=== PATIENT | male | born 1930 | race Caucasian/White ===

== ENCOUNTER → 2017-01-11 | Outpatient (CLI) | payer MEDICARE, BC | END | disposition home or self-care (01) | LOC: MW.CHIM 11:53 | PROVIDERS: ATTEND Internal Medicine | DX: C34.92 Malignant neoplasm of unspecified part of left bronchus or lung (principal); C34.91 Malignant neoplasm of unspecified part of right bronchus or lung; I10 Essential (primary) hypertension; E78.00 Pure hypercholesterolemia, unspecified; E87.6 Hypokalemia; J44.9 Chronic obstructive pulmonary disease, unspecified; F41.9 Anxiety disorder, unspecified; F32.9 Major depressive disorder, single episode, unspecified | CPT/HCPCS: 36415; 80053; 83540; 85025; 99214 ==

== ENCOUNTER → 2017-02-23 | Outpatient (CLI) | payer MEDICARE, BC | LOC: MW.CHPOD 08:00 | PROVIDERS: ATTEND Podiatrist Foot & Ankle Surgery | DX: M79.675 Pain in left toe(s) (principal); B35.1 Tinea unguium; I73.9 Peripheral vascular disease, unspecified; L89.890 Pressure ulcer of other site, unstageable; M20.5X2 Other deformities of toe(s) (acquired), left foot | CPT/HCPCS: G0463 ==

== ENCOUNTER → 2017-03-03 | Outpatient (CLI) | payer MEDICARE, BC | LOC: MW.CHIM 09:12 | PROVIDERS: ATTEND Internal Medicine | DX: E87.6 Hypokalemia (principal); D64.9 Anemia, unspecified; C34.92 Malignant neoplasm of unspecified part of left bronchus or lung; E83.19 Other disorders of iron metabolism; C79.51 Secondary malignant neoplasm of bone | CPT/HCPCS: 36415; 80053; 83540; 85025; G0463 ==

== ENCOUNTER 2019-06-19 15:36 | Observation (INO) | payer MEDICARE, BC ==
--- NOTE | 2019-06-19 15:49 | EDM.PDOC ---
ED HPI GENERAL MEDICAL PROBLEM - General Chief Complaint: Respiratory Problem Stated Complaint: SHORTNESS OF BREATH AND ANXIETY Time Seen by Provider: 06/19/19 15:40 Source of Information: Reports: Patient History Limitations: Reports: No Limitations - History of Present Illness INITIAL COMMENTS - FREE TEXT/NARRATIVE: HISTORY AND PHYSICAL: History of present illness: Patient is an 88-year-old male who presents to the emergency room with complaints of shortness of breath over the past 2 days. He does routinely uses 2 L per nasal cannula at home but had noticed that his oxygen saturation was 78%. stated she attempted to get the patient into his primary care provider but they requested that he come into the emergency room. At some point there was a comment that the patient reported chest pain to the clinic, while here in the emergency room he denies having any chest pain or pressure. Patient denies any fever, chills, headache, change in vision, syncope or near syncope. Denies any chest pain, back pain or neck pain/stiffness. Denies any abdominal pain, nausea, vomiting, diarrhea, constipation or dysuria. Has not noted any blood in urine or stool. Patient has been eating and drinking appropriately. Patient does have a history of COPD, lung cancer, atrial fibrillation. Currently receiving chemotherapy. Review of systems: As per history of present illness and below otherwise all systems reviewed and negative. Past medical history: As per history of present illness and as reviewed below otherwise noncontributory. Surgical history: As per history of present illness and as reviewed below otherwise noncontributory. Social history: See social history for further information Family history: As per history of present illness and as reviewed below otherwise noncontributory. Physical exam: General: Chronically ill appearing 88-year-old male. Alert and oriented. HEENT: Atraumatic, normocephalic, pupils equal and reactive bilaterally, negative for conjunctival pallor or scleral icterus, mucous membranes moist, trachea midline. No drooling or trismus noted. No meningeal signs. No hot potato voice noted. Lungs: Diminished lung sounds, barrel chest noted, does have some workup breathing, no retractions noted, chest nontender. Heart: S1S2, irregular rate and rhythm without overt murmur Abdomen: Soft, nondistended, sunken, nontender. Negative for masses. Negative for costovertebral tenderness. Skin: Intact, warm, dry. No lesions or rashes noted. Extremities: Atraumatic, moves all extremities per self without difficulty or deficits. Neurovascular unremarkable. Neuro: Awake, alert, oriented. Cranial nerves II through XII unremarkable. Cerebellum unremarkable. Motor and sensory unremarkable throughout. Exam nonfocal. Notes: Patient does have leukocytosis and appears that there is a right lower lobe infiltrate will treat as such. The radiologist is reading the x-ray is a nodular opacity in the left highly or region. Mild bibasilar atelectasis and trace bilateral pleural effusions noted. Patient's troponin is elevated at 0.062. I did have a lengthy discussion with the and patient about transfer to [facility] for cardiology services. Patient declines he states he does not want to be transferred and is even hesitant about staying at our facility for continued care and monitoring. Patient and are aware of the risks of not having further cardiology care. Patient's agrees that she does not want the patient to be transferred, does talk with patient and is willing to stay at our facility for further care and management. Patient continues to deny having any chest pain. Heide was consult on this case and agreeable to keeping this patient for further care. Diagnostics: CBC, CMP, Troponin, EKG, ABG, CXR, blood cultures 2, cardiac tech oxygen Therapeutics: Saline lock, Rocephin, aspirin Impression: Elevated Troponin Hypoxemia Pneumonia Plan: Observation admission with cardiac monitoring Definitive disposition and diagnosis as appropriate pending reevaluation and review of above. epigastric Pain Score (Numeric/FACES): 10 - Related Data Allergies Allergy/AdvReac Type Severity Reaction Status Date / Time ciprofloxacin Allergy Itching Verified 06/19/19 15:46 Penicillins Allergy Cannot Verified 06/19/19 15:46 Remember Home Meds: Home Meds Lisinopril 20 mg PO DAILY 06/17/14 [History] Lovastatin 10 mg PO BEDTIME 06/17/14 [History] Diazepam [Valium] 5 mg PO Q24H PRN 06/18/14 [History] Imipramine HCl 25 mg PO DAILY 06/18/14 [History] Levalbuterol HCl [Xopenex] 1.25 mg NEB Q3H PRN #100 neb 06/26/14 [Rx] Mirtazapine [Remeron] 15 mg PO BEDTIME #30 tab.dis 06/26/14 [Rx] Pantoprazole [ProTONIX Granules] 40 mg PO DAILY #30 packet 06/26/14 [Rx] Furosemide [Lasix] 20 mg PO Q48H 09/20/18 [History] Levothyroxine [Synthroid] 50 mcg PO ACBREAKFAST 09/20/18 [History] Potassium Chloride [Klor-Con 10] 10 meq PO Q48H 09/20/18 [History] Tamsulosin [Flomax] 0.4 mg PO BEDTIME 09/20/18 [History] Colchicine 0.6 mg PO Q48H #5 capsule 09/22/18 [Rx] Levofloxacin [Levaquin] 750 mg PO Q48H #3 tablet 09/22/18 [Rx] Past Medical History Cardiovascular History: Reports: High Cholesterol, Hypertension Respiratory History: Reports: COPD, Other (See Below) Other Respiratory History: Lung Cancer Gastrointestinal History: Reports: GERD, Irritable Bowel Syndrome Neurological History: Reports: CVA Psychiatric History: Reports: Anxiety, Depression, Panic Attack Oncologic (Cancer) History: Reports: Lung - Infectious Disease History Infectious Disease History: Reports: Chicken Pox, Measles, Mumps, Pertussis ( Whooping Cough) Social & Family History - Caffeine Use Caffeine Use: Reports: None - Living Situation & Occupation Living situation: Reports: Occupation: Retired ED ROS GENERAL - Review of Systems Review Of Systems: ROS reveals no pertinent complaints other than HPI. ED EXAM, GENERAL - Physical Exam Exam: See Below (See dictation) Course - Vital Signs Last Recorded V/S: Last Vital Signs Temp 96.7 F 06/19/19 15:44 Pulse 108 H 06/19/19 16:41 Resp 22 H 06/19/19 15:44 BP 111/62 06/19/19 16:41 Pulse Ox 75 L 06/19/19 16:41 - Orders/Labs/Meds Orders: Active Orders 24 hr Category Date Time Status Patient Status [ADT] Stat ADT 06/19/19 16:23 Active Cardiac Monitoring [RC] . DIRECTED Care 06/19/19 16:23 Active EKG Documentation Completion [RC] STAT Care 06/19/19 15:40 Active CULTURE BLOOD [BC] Stat Lab 06/19/19 16:25 Ordered CULTURE BLOOD [BC] Stat Lab 06/19/19 16:38 Results Blood Culture x2 Reflex Set [OM.PC] Stat Oth 06/19/19 16:22 Ordered Labs: Laboratory Tests 06/19/19 06/19/19 06/19/19 Range/Units 15:41 15:41 15:41 WBC 18.46 H (4.0-11.0) K/uL RBC 4.16 L (4.50-5.90) M/uL Hgb 12.3 L (13.0-17.0) g/dL Hct 40.3 (38.0-50.0) % MCV 96.9 (80.0-98.0) fL MCH 29.6 (27.0-32.0) pg MCHC 30.5 L (31.0-37.0) g/dL RDW Std Deviation 62.5 H (28.0-62.0) fl RDW Coeff of Joe 18 H (11.0-15.0) % Plt Count 127 L (150-400) K/uL MPV 11.40 (7.40-12.00) fL Add Manual Diff YES Neutrophils % (Manual) 75 (48.0-80.0) % Band Neutrophils % 3 % Lymphocytes % (Manual) 19 (16.0-40.0) % Monocytes % (Manual) 3 (0.0-15.0) % Nucleated RBC % 0.0 /100WBC Absolute Seg Neuts 13.8 H (1.4-5.7) Band Neutrophils # 0.6 Lymphocytes # (Manual) 3.5 H (0.6-2.4) Monocytes # (Manual) 0.6 (0.0-0.8) Nucleated RBCs # 0 K/uL ABG pH (7.35-7.45) ABG pCO2 (35-45) mmHG ABG pO2 (75-100) mmHG ABG HCO3 (22-26) mEq/L ABG Total CO2 ABG Base Excess (-2.0-2.0) Sodium 141 (136-148) mmol/L Potassium 4.7 (3.5-5.1) mmol/L Chloride 105 (98-107) mmol/L Carbon Dioxide 26.3 (21.0-32.0) mmol/L BUN 33 H (7.0-18.0) mg/dL Creatinine 1.5 H (0.8-1.3) mg/dL Est Cr Clr Drug Dosing 24.26 mL/min Estimated GFR (MDRD) 44.3 ml/min Glucose 111 H (74-106) mg/dL Calcium 9.4 (8.5-10.1) mg/dL Total Bilirubin 0.6 (0.2-1.0) mg/dL AST 26 (15-37) IU/L ALT 12 L (14-63) IU/L Alkaline Phosphatase 113 (46-116) U/L Troponin I 0.062 H* (0.000-0.056) ng/mL B-Natriuretic Peptide 230 H (<100) PG/ML Total Protein 7.4 (6.4-8.2) g/dL Albumin 3.3 L (3.4-5.0) g/dL Globulin 4.1 H (2.6-4.0) g/dL Albumin/Globulin Ratio 0.8 L (0.9-1.6) 06/19/19 Range/Units 16:00 WBC (4.0-11.0) K/uL RBC (4.50-5.90) M/uL Hgb (13.0-17.0) g/dL Hct (38.0-50.0) % MCV (80.0-98.0) fL MCH (27.0-32.0) pg MCHC (31.0-37.0) g/dL RDW Std Deviation (28.0-62.0) fl RDW Coeff of Joe (11.0-15.0) % Plt Count (150-400) K/uL MPV (7.40-12.00) fL Add Manual Diff Neutrophils % (Manual) (48.0-80.0) % Band Neutrophils % % Lymphocytes % (Manual) (16.0-40.0) % Monocytes % (Manual) (0.0-15.0) % Nucleated RBC % /100WBC Absolute Seg Neuts (1.4-5.7) Band Neutrophils # Lymphocytes # (Manual) (0.6-2.4) Monocytes # (Manual) (0.0-0.8) Nucleated RBCs # K/uL ABG pH 7.500 H (7.35-7.45) ABG pCO2 33 L (35-45) mmHG ABG pO2 64 L (75-100) mmHG ABG HCO3 26 (22-26) mEq/L ABG Total CO2 23.1 ABG Base Excess 2.7 H (-2.0-2.0) Sodium (136-148) mmol/L Potassium (3.5-5.1) mmol/L Chloride (98-107) mmol/L Carbon Dioxide (21.0-32.0) mmol/L BUN (7.0-18.0) mg/dL Creatinine (0.8-1.3) mg/dL Est Cr Clr Drug Dosing mL/min Estimated GFR (MDRD) ml/min Glucose (74-106) mg/dL Calcium (8.5-10.1) mg/dL Total Bilirubin (0.2-1.0) mg/dL AST (15-37) IU/L ALT (14-63) IU/L Alkaline Phosphatase (46-116) U/L Troponin I (0.000-0.056) ng/mL B-Natriuretic Peptide (<100) PG/ML Total Protein (6.4-8.2) g/dL Albumin (3.4-5.0) g/dL Globulin (2.6-4.0) g/dL Albumin/Globulin Ratio (0.9-1.6) Meds: Medications Discontinued Medications Generic Name Dose Route Start Last Admin Trade Name Freq PRN Reason Stop Dose Admin Aspirin 324 mg 06/19/19 16:15 06/19/19 16:26 Aspirin PO 06/19/19 16:16 324 mg ONETIME ONE Administration Ceftriaxone Sodium/Dextrose 1 50 mls @ 100 mls/hr 06/19/19 16:23 06/19/19 16: 37 gm/ Premix IV 06/19/19 16:52 100 mls/hr ONETIME ONE Administration Departure - Departure Time of Disposition: 16:58 Disposition: Refer to Observation Clinical Impression: Elevated troponin, History of lung cancer, Hypoxemia Pneumonia Qualifiers: Pneumonia type: due to unspecified organism Laterality: right Lung location: lower lobe of lung Qualified Code(s): J18.1 - Lobar pneumonia, unspecified organism - Discharge Information Referrals: PCP,None [Primary Care Provider] - Forms: ED Department Discharge - My Orders Last 24 Hours: My Active Orders 06/19/19 15:40 EKG Documentation Completion [RC] STAT 06/19/19 16:22 Blood Culture x2 Reflex Set [OM.PC] Stat 06/19/19 16:23 Patient Status [ADT] Stat Cardiac Monitoring [RC] . DIRECTED 06/19/19 16:25 CULTURE BLOOD [BC] Stat 06/19/19 16:38 CULTURE BLOOD [BC] Stat - Assessment/Plan Last 24 Hours: My Active Orders 06/19/19 15:40 EKG Documentation Completion [RC] STAT 06/19/19 16:22 Blood Culture x2 Reflex Set [OM.PC] Stat 06/19/19 16:23 Patient Status [ADT] Stat Cardiac Monitoring [RC] . DIRECTED 06/19/19 16:25 CULTURE BLOOD [BC] Stat 06/19/19 16:38 CULTURE BLOOD [BC] Stat
[2019-06-19] MEDS ORDERED: Aspirin 81 MG Tab.Chew PO ONE (16:15)
--- NOTE | 2019-06-19 16:17 | CR ---
INDICATION: Dyspnea TECHNIQUE: Chest radiograph 1 view COMPARISON: 03/28/2019 FINDINGS: Mediastinum: There is a nodular opacity in the left hilar region and measures 2 cm in diameter and is more organized in appearance to prior exam. The heart silhouette is normal in size and morphology. Lung: Mild bibasilar atelectasis and trace bilateral pleural effusions are noted. No pneumothorax is identified. IMPRESSIONS: 1. There is a nodular opacity in the left hilar region and measures 2 cm in diameter and is more organized in appearance to prior exam. Assessment with chest CT recommended. 2. Mild bibasilar atelectasis and trace bilateral pleural effusions are noted. Dictated by Rayo Gudino MD @ 06/19/2019 4:15:35 PM Dictated by: Rayo Gudino MD @ 06/19/2019 16:15:40 (Electronically Signed)
[2019-06-19] MEDS ORDERED: cefTRIAXone 1 GM in Premix Bag 1 BAG IV ONE (16:23)
[2019-06-19] MEDS ORDERED: oxyCODONE 5 MG Tab PO PRN (18:03)
[2019-06-19] MEDS ORDERED: Temazepam 15 MG Cap PO PRN (18:03)
[2019-06-19] MEDS ORDERED: Acetaminophen 325 MG Tab PO PRN (18:03)
[2019-06-19] MEDS ORDERED: Albuterol 0.083% 2.5 MG/3 ML Neb Soln NEB PRN (18:03)
[2019-06-19] MEDS ORDERED: Ondansetron 4 MG Tab.DIS PO PRN (18:03)
[2019-06-19] MEDS: Sodium Chloride 0.9% 1,000 ML IV SCH (19:00)
--- NOTE | 2019-06-19 19:10 | PCM.HP ---
H&P History of Present Illness - General Date of Service: 06/19/19 Admit Problem/Dx: Admission Diagnosis/Problem Admission Diagnosis/Problem Pneumonia Source of Information: Patient History Limitations: Reports: No Limitations - History of Present Illness Initial Comments - Free Text/Narative: The patient is an 88-year-old gentleman who had presented to the emergency department primarily out of concern for shortness of breath and anxiety. The patient has a significant history of recurrent widely metastatic lung cancer and chest x-ray had shown new nodular disease. The patient uses 2 L of oxygen at home and he had been saturating around 78%. The patient came into the emergency department and was noted to have an elevated troponin as well of 0.062 and both the patient and the patient's had refused transfer. The patient also had been complaining initially of chest pain although he denies this at this time. The patient also has denied any fever, chills or syncope. The patient is currently receiving chemotherapy. The patient was last hospitalized in August 2018 for similar episode. Patient says that he has been in declining health. Onset of Symptoms: Reports: Gradual Duration of Symptoms: Reports: Day(s): Quality: Reports: Throbbing Improves with: Reports: None Worsens with: Reports: None Context: Reports: Other (Widely metastatic lung cancer) Associated Symptoms: Reports: No Other Symptoms epigastric Pain Score (Numeric/FACES): 10 - Related Data Allergies/Adverse Reactions: Allergies Allergy/AdvReac Type Severity Reaction Status Date / Time ciprofloxacin Allergy Itching Verified 06/19/19 18:05 Penicillins Allergy Cannot Verified 06/19/19 18:05 Remember Home Medications: Home Meds Lisinopril 20 mg PO DAILY 06/17/14 [History] Diazepam [Valium] 5 mg PO Q12HR 06/18/14 [History] Imipramine HCl 25 mg PO DAILY 06/18/14 [History] Levalbuterol HCl [Xopenex] 1.25 mg NEB Q3H PRN #100 neb 06/26/14 [Rx] Mirtazapine [Remeron] 15 mg PO BEDTIME #30 tab.dis 06/26/14 [Rx] Pantoprazole [ProTONIX Granules] 40 mg PO DAILY #30 packet 06/26/14 [Rx] Furosemide [Lasix] 20 mg PO Q48H 09/20/18 [History] Levothyroxine [Synthroid] 50 mcg PO ACBREAKFAST 09/20/18 [History] Tamsulosin [Flomax] 0.4 mg PO BEDTIME 09/20/18 [History] Colchicine 0.6 mg PO Q48H PRN 06/19/19 [History] Past Medical History HEENT History: Reports: Cataract, Impaired Vision Cardiovascular History: Reports: Afib, High Cholesterol, Hypertension Respiratory History: Reports: COPD, Pneumonia, Recurrent, Other (See Below) Other Respiratory History: Lung Cancer Gastrointestinal History: Reports: GERD, Irritable Bowel Syndrome Genitourinary History: Reports: None Musculoskeletal History: Reports: Arthritis Neurological History: Reports: CVA Psychiatric History: Reports: Anxiety, Depression, Panic Attack Endocrine/Metabolic History: Reports: None Hematologic History: Reports: Anemia, Blood Transfusion(s), Iron Deficiency Immunologic History: Reports: None Oncologic (Cancer) History: Reports: Lung Dermatologic History: Reports: None - Infectious Disease History Infectious Disease History: Reports: Chicken Pox, Measles, Mumps, Pertussis ( Whooping Cough) - Past Surgical History HEENT Surgical History: Reports: None Male Surgical History: Reports: None Endocrine Surgical History: Reports: None Musculoskeletal Surgical History: Reports: Hip Replacement Dermatological Surgical History: Reports: None Social & Family History - Family History Family Medical History: Noncontributory - Tobacco Use Smoking Status *Q: Former Smoker Used Tobacco, but Quit: Yes Month/Year Tobacco Last Used: 11/2014 Second Hand Smoke Exposure: Yes - Caffeine Use Caffeine Use: Reports: Coffee - Recreational Drug Use Recreational Drug Use: No - Living Situation & Occupation Living situation: Reports: Occupation: Retired H&P Review of Systems - Review of Systems: Review Of Systems: See Below General: Reports: Weakness, Weight Loss HEENT: Reports: No Symptoms Pulmonary: Reports: Shortness of Breath, Wheezing, Cough Cardiovascular: Reports: No Symptoms Gastrointestinal: Reports: No Symptoms Genitourinary: Reports: No Symptoms Musculoskeletal: Reports: Hand Pain Skin: Reports: No Symptoms Psychiatric: Reports: No Symptoms Neurological: Reports: No Symptoms Hematologic/Lymphatic: Reports: No Symptoms Immunologic: Reports: No Symptoms Exam - Exam Exam: See Below - Vital Signs Vital Signs: Last Vital Signs Temp 37.2 C 06/19/19 17:17 Pulse 98 06/19/19 17:17 Resp 16 06/19/19 17:17 BP 129/54 L 06/19/19 17:17 Pulse Ox 94 L 06/19/19 18:44 Weight: 49.442 kg - Exam Quality Assessment: Supplemental Oxygen General: Alert (Cachectic), Oriented, Cooperative, Mild Distress HEENT: Conjunctiva Clear, EACs Clear (Dry), EOMI, Pupils Equal, PERRLA. No: Mucosa Moist & [place] Neck: Supple, Trachea Midline Lungs: Clear to Auscultation, Normal Respiratory Effort Cardiovascular: Regular Rate, Regular Rhythm GI/Abdominal Exam: Normal Bowel Sounds, Soft, No Distention Back Exam: Normal Inspection (Appropriate for age) Extremities: Normal Inspection, No Pedal Edema, Other (Thin, markedly decreased muscle mass) Skin: Warm, Dry, Intact Neurological: Cranial Nerves Intact Neuro Extensive - Mental Status: Alert, Oriented x3, Memory Intact Neuro Extensive - Motor, Sensory, Reflexes: CN II-XII Intact Psychiatric: Alert, Normal Affect, Normal Mood - Patient Data Lab Results Last 24 hrs: Laboratory Results - last 24 hr 06/19/19 06/19/19 06/19/19 Range/Units 15:41 15:41 15:41 WBC 18.46 H (4.0-11.0) K/uL RBC 4.16 L (4.50-5.90) M/uL Hgb 12.3 L (13.0-17.0) g/dL Hct 40.3 (38.0-50.0) % MCV 96.9 (80.0-98.0) fL MCH 29.6 (27.0-32.0) pg MCHC 30.5 L (31.0-37.0) g/dL RDW Std Deviation 62.5 H (28.0-62.0) fl RDW Coeff of Joe 18 H (11.0-15.0) % Plt Count 127 L (150-400) K/uL MPV 11.40 (7.40-12.00) fL Add Manual Diff YES Neutrophils % (Manual) 75 (48.0-80.0) % Band Neutrophils % 3 % Lymphocytes % (Manual) 19 (16.0-40.0) % Monocytes % (Manual) 3 (0.0-15.0) % Nucleated RBC % 0.0 /100WBC Absolute Seg Neuts 13.8 H (1.4-5.7) Band Neutrophils # 0.6 Lymphocytes # (Manual) 3.5 H (0.6-2.4) Monocytes # (Manual) 0.6 (0.0-0.8) Nucleated RBCs # 0 K/uL ABG pH (7.35-7.45) ABG pCO2 (35-45) mmHG ABG pO2 (75-100) mmHG ABG HCO3 (22-26) mEq/L ABG Total CO2 ABG Base Excess (-2.0-2.0) Sodium 141 (136-148) mmol/L Potassium 4.7 (3.5-5.1) mmol/L Chloride 105 (98-107) mmol/L Carbon Dioxide 26.3 (21.0-32.0) mmol/L BUN 33 H (7.0-18.0) mg/dL Creatinine 1.5 H (0.8-1.3) mg/dL Est Cr Clr Drug Dosing 24.26 mL/min Estimated GFR (MDRD) 44.3 ml/min Glucose 111 H (74-106) mg/dL Calcium 9.4 (8.5-10.1) mg/dL Total Bilirubin 0.6 (0.2-1.0) mg/dL AST 26 (15-37) IU/L ALT 12 L (14-63) IU/L Alkaline Phosphatase 113 (46-116) U/L Troponin I 0.062 H* (0.000-0.056) ng/mL B-Natriuretic Peptide 230 H (<100) PG/ML Total Protein 7.4 (6.4-8.2) g/dL Albumin 3.3 L (3.4-5.0) g/dL Globulin 4.1 H (2.6-4.0) g/dL Albumin/Globulin Ratio 0.8 L (0.9-1.6) 06/19/19 Range/Units 16:00 WBC (4.0-11.0) K/uL RBC (4.50-5.90) M/uL Hgb (13.0-17.0) g/dL Hct (38.0-50.0) % MCV (80.0-98.0) fL MCH (27.0-32.0) pg MCHC (31.0-37.0) g/dL RDW Std Deviation (28.0-62.0) fl RDW Coeff of Joe (11.0-15.0) % Plt Count (150-400) K/uL MPV (7.40-12.00) fL Add Manual Diff Neutrophils % (Manual) (48.0-80.0) % Band Neutrophils % % Lymphocytes % (Manual) (16.0-40.0) % Monocytes % (Manual) (0.0-15.0) % Nucleated RBC % /100WBC Absolute Seg Neuts (1.4-5.7) Band Neutrophils # Lymphocytes # (Manual) (0.6-2.4) Monocytes # (Manual) (0.0-0.8) Nucleated RBCs # K/uL ABG pH 7.500 H (7.35-7.45) ABG pCO2 33 L (35-45) mmHG ABG pO2 64 L (75-100) mmHG ABG HCO3 26 (22-26) mEq/L ABG Total CO2 23.1 ABG Base Excess 2.7 H (-2.0-2.0) Sodium (136-148) mmol/L Potassium (3.5-5.1) mmol/L Chloride (98-107) mmol/L Carbon Dioxide (21.0-32.0) mmol/L BUN (7.0-18.0) mg/dL Creatinine (0.8-1.3) mg/dL Est Cr Clr Drug Dosing mL/min Estimated GFR (MDRD) ml/min Glucose (74-106) mg/dL Calcium (8.5-10.1) mg/dL Total Bilirubin (0.2-1.0) mg/dL AST (15-37) IU/L ALT (14-63) IU/L Alkaline Phosphatase (46-116) U/L Troponin I (0.000-0.056) ng/mL B-Natriuretic Peptide (<100) PG/ML Total Protein (6.4-8.2) g/dL Albumin (3.4-5.0) g/dL Globulin (2.6-4.0) g/dL Albumin/Globulin Ratio (0.9-1.6) Result Diagrams: 06/20/19 03:08 06/20/19 03:08 Errol Results Last 24 hrs: Microbiology 06/19/19 16:38 Anaerobic Blood Culture - Final Blood - Venous - Problem List (1) Acute and chronic respiratory failure SNOMED Code(s): 61818755 ICD Code: J96.20 - ACUTE AND CHR RESP FAILURE, UNSP W HYPOXIA OR HYPERCAPNIA Status: Acute Priority: High Current Visit: Yes Qualifiers: Respiratory failure complication: hypoxia Qualified Code(s): J96.21 - Acute and chronic respiratory failure with hypoxia (2) Elevated troponin SNOMED Code(s): 205771171, 325596003, 826702158 ICD Code: R74.8 - ABNORMAL LEVELS OF OTHER SERUM ENZYMES Status: Acute Priority: High Current Visit: Yes (3) Hypoxemia SNOMED Code(s): 357201243 ICD Code: R09.02 - HYPOXEMIA Status: Chronic Priority: High Current Visit: Yes (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 SNOMED Code(s): 826631464 ICD Code: J44.9 - CHRONIC OBSTRUCTIVE PULMONARY DISEASE, UNSPECIFIED; R64 - CACHEXIA Status: Chronic Priority: High Current Visit: Yes (5) Metastatic primary lung cancer SNOMED Code(s): 70818202, 911383184 ICD Code: C34.90 - MALIGNANT NEOPLASM OF UNSP PART OF UNSP BRONCHUS OR LUNG Status: Acute Priority: High Current Visit: Yes Qualifiers: Laterality: right Qualified Code(s): C34.91 - Malignant neoplasm of unspecified part of right bronchus or lung Problem List Initiated/Reviewed/Updated: Yes Orders Last 24hrs: Active Orders 24 hr Category Date Time Status Patient Status [ADT] Stat ADT 06/19/19 16:23 Active Antiembolic Devices [RC] PER UNIT ROUTINE Care 06/19/19 18:04 Active Cardiac Monitoring [RC] . DIRECTED Care 06/19/19 16:23 Active Cardiac Monitoring [RC] CONTINUOUS Care 06/19/19 18:03 Active EKG Documentation Completion [RC] STAT Care 06/19/19 15:40 Active Oxygen Therapy [RC] PRN Care 06/19/19 18:03 Active RT Aerosol Therapy [RC] ASDIRECTED Care 06/19/19 18:06 Active VTE/DVT Education [RC] PER UNIT ROUTINE Care 06/19/19 18:03 Active Vital Signs [RC] Q4H Care 06/19/19 18:03 Active Heart Healthy Diet [DIET] Diet 06/19/19 Breakfast Active CBC WITH AUTO DIFF [HEME] AM Lab 06/20/19 05:11 Ordered COMPREHENSIVE METABOLIC PN,CMP [CHEM] AM Lab 06/20/19 05:11 Ordered CULTURE BLOOD [BC] Stat Lab 06/19/19 16:38 Results CULTURE BLOOD [BC] Stat Lab 06/19/19 16:52 Received TROPONIN I [CHEM] Routine Lab 06/19/19 21:00 Ordered TROPONIN I [CHEM] Timed Lab 06/20/19 03:00 Ordered Acetaminophen [Tylenol] Med 06/19/19 18:03 Active 650 mg PO Q4H PRN Albuterol [Proventil Neb Soln] Med 06/19/19 18:03 Active 2.5 mg NEB Q2H PRN Ondansetron [Zofran ODT] Med 06/19/19 18:03 Active 4 mg PO Q4H PRN Sodium Chloride 0.9% [Normal Saline] 1,000 ml Med 06/19/19 18:15 Active IV ASDIRECTED Temazepam [Restoril] Med 06/19/19 18:03 Active 15 mg PO BEDTIME PRN oxyCODONE Med 06/19/19 18:03 Active 5 mg PO Q4H PRN Blood Culture x2 Reflex Set [OM.PC] Stat Oth 06/19/19 16:22 Ordered Sequential Compression Device [OM.PC] Per Unit Routine Oth 06/19/19 18:04 Ordered Medication Orders Acetaminophen (Tylenol) 650 mg PO Q4H PRN PRN Reason: Pain (Mild 1-3)/fever Albuterol (Proventil Neb Soln) 2.5 mg NEB Q2H PRN PRN Reason: Shortness Of Breath/wheezing Sodium Chloride (Normal Saline) 1,000 mls @ 75 mls/hr IV ASDIRECTED YOAN Last Admin: 06/19/19 19:00 Dose: 75 mls/hr Ondansetron HCl (Zofran Odt) 4 mg PO Q4H PRN PRN Reason: nausea, able to take PO Oxycodone HCl (Oxycodone) 5 mg PO Q4H PRN PRN Reason: Pain (moderate 4-6) Temazepam (Restoril) 15 mg PO BEDTIME PRN PRN Reason: Sleep Assessment/Plan Comment:: The patient is an 88-year-old gentleman who had been admitted out of concern primarily for hypoxia and pneumonia. Chest x-ray obtained showed nodular densities consistent with his history of pulmonary cancer. Pneumonia was not apparent according to radiology over read. 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 The patient had been given antibiotics in the emergency department and these will be discontinued for now. We will be reinstituted as necessary. The patient will be kept on oxygen as needed to help keep his oxygen saturations between 90 and 92% . The patient is also to have a regular diet as tolerated. Repeat laboratory studies have been ordered. The patient may be considered next for possible hospice care. The patient will have DVT prophylaxis with the use of SCDs.
[2019-06-20] MEDS: Sodium Chloride 0.9% 1,000 ML IV SCH (06:34)
--- NOTE | 2019-06-20 09:31 | PCM.DCSUM1 ---
Discharge Summary - Hospital Course HPI Initial Comments: Admitted secondary to what was thought initially to be pneumonia but was considered to be lung cancer. Diagnosis: Stroke: No - Discharge Data Discharge Date: 06/20/19 Discharge Disposition: Home, Self-Care 01 Condition: Fair - Discharge Diagnosis/Problem(s) (1) Acute and chronic respiratory failure SNOMED Code(s): 87333911 ICD Code: J96.20 - ACUTE AND CHR RESP FAILURE, UNSP W HYPOXIA OR HYPERCAPNIA Status: Resolved Priority: High Current Visit: Yes Qualifiers: Respiratory failure complication: hypoxia Qualified Code(s): J96.21 - Acute and chronic respiratory failure with hypoxia (2) Elevated troponin SNOMED Code(s): 798194741, 520229068, 181850839 ICD Code: R74.8 - ABNORMAL LEVELS OF OTHER SERUM ENZYMES Status: Resolved Priority: High Current Visit: Yes (3) Hypoxemia SNOMED Code(s): 608089828 ICD Code: R09.02 - HYPOXEMIA Status: Chronic Priority: High Current Visit: Yes (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 SNOMED Code(s): 557829523 ICD Code: J44.9 - CHRONIC OBSTRUCTIVE PULMONARY DISEASE, UNSPECIFIED; R64 - [place] Status: Chronic Priority: High Current Visit: Yes (5) Metastatic primary lung cancer SNOMED Code(s): 30627649, 744653857 ICD Code: C34.90 - MALIGNANT NEOPLASM OF UNSP PART OF UNSP BRONCHUS OR LUNG Status: Chronic Priority: High Current Visit: Yes Qualifiers: Laterality: right Qualified Code(s): C34.91 - Malignant neoplasm of unspecified part of right bronchus or lung - Patient Summary/Data Consults: Consultations 06/20/19 08:48 Consult to Hospice [CONS] Routine Hospital Course: The patient is a chronically ill 88-year-old gentleman who had presented to the emergency department out of concern for shortness of breath as well as anxiety. At home the patient's pulse oximetry was around 78%. He was also noted to have an elevated troponin initially at 0.62. 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 The patient's initial chest x-ray was not noted to have pneumonia by radiologist. He does have new nodular disease consistent with his lung cancer. The patient is also been receiving chemotherapy. During the short course of hospitalization the patient was kept on oxygen. His oxygen demands had improved by day of discharge. The patient also had hospice consult and the patient and the patient's family had elected to follow-up with one more oncology visit for further information. By day of discharge the patient had improved to his baseline oxygen requirements. The patient also had been tolerating his diet. The patient has been recommended to continue with activity as tolerated. He is also to follow-up with oncology as scheduled. The patient is otherwise hemodynamically stable and the patient has been discharged from hospitalization with recommendations listed above. - Discharge Plan Home Medications: Home Meds Lisinopril 20 mg PO DAILY 06/17/14 [History] Diazepam [Valium] 5 mg PO Q12HR 06/18/14 [History] Imipramine HCl 25 mg PO DAILY 06/18/14 [History] Levalbuterol HCl [Xopenex] 1.25 mg NEB Q3H PRN #100 neb 06/26/14 [Rx] Mirtazapine [Remeron] 15 mg PO BEDTIME #30 tab.dis 06/26/14 [Rx] Pantoprazole [ProTONIX Granules] 40 mg PO DAILY #30 packet 06/26/14 [Rx] Furosemide [Lasix] 20 mg PO Q48H 09/20/18 [History] Levothyroxine [Synthroid] 50 mcg PO ACBREAKFAST 09/20/18 [History] Tamsulosin [Flomax] 0.4 mg PO BEDTIME 09/20/18 [History] Colchicine 0.6 mg PO Q48H PRN 06/19/19 [History] Forms: ED Department Discharge Referrals: Teodoro Logan MD [Ordering Only Provider] - PCP,None [Primary Care Provider] - - Discharge Summary/Plan Comment DC Time >30 min.: Yes - General Info Date of Service: 06/20/19 Admission Dx/Problem (Free Text: Admission Diagnosis/Problem Admission Diagnosis/Problem metastatic pulmonary cancer, acute on chronic respiratory failure Functional Status: Reports: Pain Controlled - Review of Systems General: Reports: No Symptoms HEENT: Reports: No Symptoms Pulmonary: Reports: Shortness of Breath, Cough Cardiovascular: Reports: No Symptoms Gastrointestinal: Reports: No Symptoms Genitourinary: Reports: No Symptoms Musculoskeletal: Reports: No Symptoms Skin: Reports: No Symptoms Neurological: Reports: No Symptoms Psychiatric: Reports: No Symptoms - Patient Data Vitals - Most Recent: Last Vital Signs Temp 36.4 C 06/20/19 08:00 Pulse 85 06/20/19 09:00 Resp 26 H 06/20/19 09:00 BP 132/73 06/20/19 09:00 Pulse Ox 99 06/20/19 09:00 Weight - Most Recent: 49.442 kg I&O - Last 24 hours: Intake & Output 06/19/19 06/20/19 06/20/19 22:59 06:59 14:59 Intake Total 906 Balance 906 Lab Results - Last 24 hrs: Laboratory Results - last 24 hr 06/19/19 06/19/19 06/19/19 Range/Units 15:41 15:41 15:41 WBC 18.46 H (4.0-11.0) K/uL RBC 4.16 L (4.50-5.90) M/uL Hgb 12.3 L (13.0-17.0) g/dL Hct 40.3 (38.0-50.0) % MCV 96.9 (80.0-98.0) fL MCH 29.6 (27.0-32.0) pg MCHC 30.5 L (31.0-37.0) g/dL RDW Std Deviation 62.5 H (28.0-62.0) fl RDW Coeff of Joe 18 H (11.0-15.0) % Plt Count 127 L (150-400) K/uL MPV 11.40 (7.40-12.00) fL Add Manual Diff YES Neutrophils % (Manual) 75 (48.0-80.0) % Band Neutrophils % 3 % Lymphocytes % (Manual) 19 (16.0-40.0) % Monocytes % (Manual) 3 (0.0-15.0) % Nucleated RBC % 0.0 /100WBC Absolute Seg Neuts 13.8 H (1.4-5.7) Band Neutrophils # 0.6 Lymphocytes # (Manual) 3.5 H (0.6-2.4) Monocytes # (Manual) 0.6 (0.0-0.8) Nucleated RBCs # 0 K/uL ABG pH (7.35-7.45) ABG pCO2 (35-45) mmHG ABG pO2 (75-100) mmHG ABG HCO3 (22-26) mEq/L ABG Total CO2 ABG Base Excess (-2.0-2.0) Sodium 141 (136-148) mmol/L Potassium 4.7 (3.5-5.1) mmol/L Chloride 105 (98-107) mmol/L Carbon Dioxide 26.3 (21.0-32.0) mmol/L BUN 33 H (7.0-18.0) mg/dL Creatinine 1.5 H (0.8-1.3) mg/dL Est Cr Clr Drug Dosing 24.26 mL/min Estimated GFR (MDRD) 44.3 ml/min Glucose 111 H (74-106) mg/dL Calcium 9.4 (8.5-10.1) mg/dL Total Bilirubin 0.6 (0.2-1.0) mg/dL AST 26 (15-37) IU/L ALT 12 L (14-63) IU/L Alkaline Phosphatase 113 (46-116) U/L Troponin I 0.062 H* (0.000-0.056) ng/mL B-Natriuretic Peptide 230 H (<100) PG/ML Total Protein 7.4 (6.4-8.2) g/dL Albumin 3.3 L (3.4-5.0) g/dL Globulin 4.1 H (2.6-4.0) g/dL Albumin/Globulin Ratio 0.8 L (0.9-1.6) 06/19/19 06/19/19 06/20/19 Range/Units 16:00 21:24 03:08 WBC 15.87 H (4.0-11.0) K/uL RBC 3.51 L (4.50-5.90) M/uL Hgb 10.4 L (13.0-17.0) g/dL Hct 33.8 L (38.0-50.0) % MCV 96.3 (80.0-98.0) fL MCH 29.6 (27.0-32.0) pg MCHC 30.8 L (31.0-37.0) g/dL RDW Std Deviation 61.8 (28.0-62.0) fl RDW Coeff of Joe 18 H (11.0-15.0) % Plt Count 117 L (150-400) K/uL MPV 10.80 (7.40-12.00) fL Add Manual Diff YES Neutrophils % (Manual) 75 (48.0-80.0) % Band Neutrophils % 2 % Lymphocytes % (Manual) 5 L (16.0-40.0) % Monocytes % (Manual) 18 H (0.0-15.0) % Nucleated RBC % 0.0 /100WBC Absolute Seg Neuts 11.9 H (1.4-5.7) Band Neutrophils # 0.3 Lymphocytes # (Manual) 0.8 (0.6-2.4) Monocytes # (Manual) 2.9 H (0.0-0.8) Nucleated RBCs # 0 K/uL ABG pH 7.500 H (7.35-7.45) ABG pCO2 33 L (35-45) mmHG ABG pO2 64 L (75-100) mmHG ABG HCO3 26 (22-26) mEq/L ABG Total CO2 23.1 ABG Base Excess 2.7 H (-2.0-2.0) Sodium (136-148) mmol/L Potassium (3.5-5.1) mmol/L Chloride (98-107) mmol/L Carbon Dioxide (21.0-32.0) mmol/L BUN (7.0-18.0) mg/dL Creatinine (0.8-1.3) mg/dL Est Cr Clr Drug Dosing mL/min Estimated GFR (MDRD) ml/min Glucose (74-106) mg/dL Calcium (8.5-10.1) mg/dL Total Bilirubin (0.2-1.0) mg/dL AST (15-37) IU/L ALT (14-63) IU/L Alkaline Phosphatase (46-116) U/L Troponin I 0.063 H* (0.000-0.056) ng/mL B-Natriuretic Peptide (<100) PG/ML Total Protein (6.4-8.2) g/dL Albumin (3.4-5.0) g/dL Globulin (2.6-4.0) g/dL Albumin/Globulin Ratio (0.9-1.6) 06/20/19 06/20/19 Range/Units 03:08 03:08 WBC (4.0-11.0) K/uL RBC (4.50-5.90) M/uL Hgb (13.0-17.0) g/dL Hct (38.0-50.0) % MCV (80.0-98.0) fL MCH (27.0-32.0) pg MCHC (31.0-37.0) g/dL RDW Std Deviation (28.0-62.0) fl RDW Coeff of Joe (11.0-15.0) % Plt Count (150-400) K/uL MPV (7.40-12.00) fL Add Manual Diff Neutrophils % (Manual) (48.0-80.0) % Band Neutrophils % % Lymphocytes % (Manual) (16.0-40.0) % Monocytes % (Manual) (0.0-15.0) % Nucleated RBC % /100WBC Absolute Seg Neuts (1.4-5.7) Band Neutrophils # Lymphocytes # (Manual) (0.6-2.4) Monocytes # (Manual) (0.0-0.8) Nucleated RBCs # K/uL ABG pH (7.35-7.45) ABG pCO2 (35-45) mmHG ABG pO2 (75-100) mmHG ABG HCO3 (22-26) mEq/L ABG Total CO2 ABG Base Excess (-2.0-2.0) Sodium 139 (136-148) mmol/L Potassium 4.3 (3.5-5.1) mmol/L Chloride 108 H (98-107) mmol/L Carbon Dioxide 25.9 (21.0-32.0) mmol/L BUN 32 H (7.0-18.0) mg/dL Creatinine 1.3 (0.8-1.3) mg/dL Est Cr Clr Drug Dosing 28.00 mL/min Estimated GFR (MDRD) 52.2 ml/min Glucose 90 (74-106) mg/dL Calcium 8.4 L (8.5-10.1) mg/dL Total Bilirubin 0.6 (0.2-1.0) mg/dL AST 17 (15-37) IU/L ALT 4 L (14-63) IU/L Alkaline Phosphatase 93 (46-116) U/L Troponin I 0.051 (0.000-0.056) ng/mL B-Natriuretic Peptide (<100) PG/ML Total Protein 6.2 L (6.4-8.2) g/dL Albumin 2.7 L (3.4-5.0) g/dL Globulin 3.5 (2.6-4.0) g/dL Albumin/Globulin Ratio 0.8 L (0.9-1.6) MEHDI Results - Last 24 hrs: Microbiology 06/19/19 16:38 Anaerobic Blood Culture - Final Blood - Venous Med Orders - Current: Current Medications Acetaminophen (Tylenol) 650 mg PO Q4H PRN PRN Reason: Pain (Mild 1-3)/fever Albuterol (Proventil Neb Soln) 2.5 mg NEB Q2H PRN PRN Reason: Shortness Of Breath/wheezing Sodium Chloride (Normal Saline) 1,000 mls @ 75 mls/hr IV ASDIRECTED [facility], 1928–1983 Last Admin: 06/20/19 06:34 Dose: 75 mls/hr Ondansetron HCl (Zofran Odt) 4 mg PO Q4H PRN PRN Reason: nausea, able to take PO Oxycodone HCl (Oxycodone) 5 mg PO Q4H PRN PRN Reason: Pain (moderate 4-6) Temazepam (Restoril) 15 mg PO BEDTIME PRN PRN Reason: Sleep Discontinued Medications Aspirin (Aspirin) 324 mg PO ONETIME ONE Stop: 06/19/19 16:16 Last Admin: 06/19/19 16:26 Dose: 324 mg Ceftriaxone Sodium/Dextrose 1 (gm/ Premix) 50 mls @ 100 mls/hr IV ONETIME ONE Stop: 06/19/19 16:52 Last Admin: 06/19/19 16:37 Dose: 100 mls/hr - Exam Quality Assessment: Reports: Supplemental Oxygen General: Reports: Alert (Cachexia), Oriented, Cooperative HEENT: Reports: Pupils Equal, Pupils Reactive, EOMI, Other (Cancer, metastatic, vertex of head) Neck: Reports: Supple, Trachea Midline Lungs: Reports: Normal Respiratory Effort, Rales Cardiovascular: Reports: Regular Rate, Regular Rhythm GI/Abdominal Exam: Normal Bowel Sounds, Soft, No Distention Back Exam: Reports: Normal Inspection (Kyphosis) Extremities: Normal Inspection, No Pedal Edema, Other (From swelling left hand between first and second carpals) Skin: Reports: Warm, Dry, Intact Neurological: Reports: No New Focal Deficit Psy/Mental Status: Reports: Alert, Normal Affect, Normal Mood
[2019-06-20 12:09] VITALS: BP 129/57
== END 2019-06-20 14:00 | disposition hospice, home (50) ==
LOC: MW.ED 15:36 → MW.ICU 16:43
PROVIDERS: ADMIT Internal Medicine; ATTEND Internal Medicine
DX: J96.21 Acute and chronic respiratory failure with hypoxia (principal); J44.9 Chronic obstructive pulmonary disease, unspecified; C34.91 Malignant neoplasm of unspecified part of right bronchus or lung; I10 Essential (primary) hypertension; E78.00 Pure hypercholesterolemia, unspecified; K21.9 Gastro-esophageal reflux disease without esophagitis; M19.90 Unspecified osteoarthritis, unspecified site; F41.0 Panic disorder [episodic paroxysmal anxiety]; F32.9 Major depressive disorder, single episode, unspecified; R74.8 Abnormal levels of other serum enzymes; Z99.81 Dependence on supplemental oxygen; Z88.1 Allergy status to other antibiotic agents; Z88.0 Allergy status to penicillin; Z79.899 Other long term (current) drug therapy; Z87.891 Personal history of nicotine dependence
CPT/HCPCS: 36415; 36600; 71045; 80053; 82803; 83880; 84484; 85025; 87040; 93005; 96361; 96365; 99285; A4217; A9270; G0378; J0696; J7040; 99284